=== PATIENT | female | born 1975 | race Asian ===

== ENCOUNTER 2016-06-12 11:46 | Day surgery (SDC) | payer OTHER ==
[~2016-06-12 11:46] MED LIST: ACET-1890 PO; ADV100INH IH; ALBU8.5H4 IH; AMIT10TA6 PO; ASCO1CAP4 PO; CALC-762 PO; CETI10CA PO; CHOL200025 PO; DOXE10CA PO; FOLI-52 PO; GLUC100016 PO; IMI25 PO; LIDO5CRE17 TP; PANT40TA3 PO; RANI150T11 PO; SPIR1TAB2 PO; THIO300C PO; TRIA10.8 NS; allertec PO
[2016-06-12] MEDS ORDERED: Lidocaine Topical 2% 30 mL Jelly ONE (12:08)
[2016-07-18] MEDS ORDERED: OXYC1TAB24 PO (15:21)
[2016-07-18] MEDS ORDERED: DULO20CA18 PO (15:21)
[2016-07-18] MEDS ORDERED: LORA10CA PO (15:21)
[2016-07-18] MEDS ORDERED: MECL-114 PO (15:21)
== END 2016-06-12 23:59 | disposition home or self-care (01) ==
LOC: END 11:46
PROVIDERS: ATTEND Internal Medicine Gastroenterology
DX: K21.9 Gastro-esophageal reflux disease without esophagitis (principal)

== ENCOUNTER 2016-07-09 20:36 | Emergency (ER) | payer OTHER ==
[~2016-07-09] VITALS: Ht 160 cm; Wt 73.2 kg
[2016-07-09 20:53] VITALS: BP 120/79; PULSE 81; RESP 16; O2SAT 100
--- NOTE | 2016-07-09 21:17 | DRSVH ---
PROCEDURE: X-RAY CHEST ONE VIEW, PORTABLE ([id number]) INDICATIONS: chest pain TECHNIQUE: One view of the chest was acquired. COMPARISON: [facility], CR, XR CHEST 1VW (PORTABLE), 01/12/2016, 14:17. FINDINGS: Surgical changes and devices: None. Lungs and pleura: No pleural effusions or pneumothorax. Lungs are clear. Mediastinum: Mediastinal contours appear normal. Heart size is normal. Bones and chest wall: No suspicious bony lesions. Overlying soft tissues appear unremarkable. IMPRESSION: No acute process. Dictated by: Haja Robins M.D. on 07/09/2016 at 21:15 Approved by: Haja Robins M.D. on 07/09/2016 at 21:15
--- NOTE | 2016-07-09 23:10 | ED.REPORT ---
HPI-Chest Pain 40 and Over Date of Service July 09, 2016 ED Provider: Vicente Cortes MD Patient is a 41 year old female who presents to the ED complaining of sharp, constant, sternal chest pain onset this morning upon waking. Her pain travels around both sides and radiates to her back. Associated symptoms include dizziness, constipation, headache, and nausea. She denies vomiting, diaphoresis , palpitations, diarrhea, or any other symptoms. She has had similar pain before that was less severe. She took Ibuprofen without relief. Nursing Notes Stated Complaint: CHEST PAIN Chief Complaint: Chest Pain Nursing Notes Reviewed: Yes Allergies: Uncoded Allergies: ROPINEROLE (Allergy, Intermediate, hallucinations, 03/04/14) environmental (Allergy, Unknown, runny nose/sneezing, 03/03/14) Scheduled ([allertec]) PO DAILY OTC Acetaminophen (Tylenol) 325 Mg Tablet 325 MG PO Q4-6H Alpha Lipoic Acid (Alpha Lipoic Acid) 300 Mg Capsule 300 MG PO DAILY Amitriptyline (Amitriptyline) 10 Mg Tablet 10 MG PO HS Ascorbic Acid/Collagen Hydr (Collagen Plus Vit C Capsule) 1 Each Capsule 1 EACH PO DAILY Calcium Carbonate/Vitamin D3 (Calcium 1,000 + D3 Caplet) 1 Each Tablet 1 EACH PO DAILY Cetirizine HCl (Zyrtec) 10 Mg Capsule 10 MG PO HS Cholecalciferol (Vitamin D3) (Vitamin D3) 2,000 Unit Tablet 2,000 UNIT PO DAILY Doxepin (Doxepin) 10 Mg Capsule 10 MG PO HS Fluticasone/Salmeterol (Advair 100-50 Diskus) 60 Puffs/Inh Disk 1 PUFFS IH BID Glucosamine Sulfate 2Kcl (Glucosamine) 1,000 Mg Tablet 1,500 MG PO DAILY Lidocaine Cream (Lidocaine Cream) 5 Gm Cream..g. 5 GM TP Q8 Multivitamin/Iron/Folic Acid (Centrum Complete Multivit Tab) 1 Each Tablet 1 EACH PO DAILY Pantoprazole DR (Pantoprazole DR) 40 Mg Tablet.dr 40 MG PO BID Ranitidine HCl (Ranitidine) 150 Mg Tablet 150 MG PO BID Spironolactone/HCTZ 25-25 mg (Spironolactone/HCTZ 25-25 mg) 1 Each Tablet 1 EACH PO DAILY Triamcinolone Acetonide (Nasacort) 10.8 Ml [place] 10.8 ML NS DAILY Scheduled PRN Albuterol HFA (Albuterol HFA) 8.5 Gm Hfa.aer.ad 2 PUFF IH Q4 PRN PRN For Wheezing Sumatriptan (Imitrex) 25 Mg Tablet 50 MG PO DIRECTED PRN PRN For Headache General Time Seen by MD: 23:08 Chief Complaint Chest pain Hx Obtained From: Patient Arrived By: Walk-in Sudden in Onset?: Yes Onset Occurred: 13 - 16 hours ago Symptom Duration: Since onset Similar Sx Previous: Yes Risk Factors )( CAD Risk Stratification No Diabetes mellitus, No Hyperlipidemia, No Hypertension, No Smoking Risk factors reviewed )( TAD Risk Stratification No Aortic valve disease, No Hypertension, No Risk factors reviewed )( PE Risk Stratification No Coagulation Disorder, No , No Previous DVT, No Previous PE Risk factors reviewed Past Medical History Past Medical History Gastritis Reports: Asthma, GERD Past Surgical History Reports: Tubal ligation Smoking History Never Smoker Social History Alcohol Use: "Social" Drug Use: Denies drug use Ambulatory Status Independent Review of Systems Cardiovascular: Reports: Chest pain, Denies: Palpitations GI: Reports: Diarrhea, Nausea, Denies: Constipation, Vomiting Musculoskeletal: Reports: Back pain Skin: Denies Diaphoresis Neurologic: Reports: Dizziness, Headache Complete sys rev & neg: except as marked. Physical Exam Initial Vital Signs Vital Signs (First) Date Time Temp Pulse Resp B/P Pulse Ox O2 Delivery O2 Flow Rate FiO2 07/09/16 20:53 36.0 81 16 120/79 100 Room Air Initial VS: Reviewed Head / Eyes: Atraumatic, Normocephalic Neck: Full range of motion Skin: Warm, Dry Neurologic: Alert, Oriented, Nonfocal Psychiatric: Mood/affect normal, Behavior normal, Normal thought content General/Constitutional: Awake, Alert, No acute distress, Well developed Respiratory / Chest: Breath sounds NL, Breath sounds = bilat, No respiratory distress Cardiovascular: Heart rate NL, Regular rhythm, Heart sounds NL, No gallop, No murmurs, No rubs Abdomen: Soft Tenderness/Guarding/Rebound: Positive: Fletcher's sign positive Interpretation & Diagnostics Lab Results Interpretation Result Diagram: 07/09/16 2319 07/09/16 2319 Test 07/09/16 23:19 White Blood Count 7.1th/mm3 (3.8-10.1) Red Blood Count 3.97mil/mm3 (3.90-5.20) Hemoglobin 11.7g/dL (12.0-15.6) Hematocrit 34.7% (35.0-46.0) Mean Corpuscular Volume 87.4fL (81-100) Mean Corpuscular Hemoglobin 29.5pg (27.0-35.0) Mean Corpuscular Hemoglobin Concent 33.7% (32.0-37.0) Red Cell Distribution Width 13.0% (12.3-15.4) Platelet Count 207bil/L (150-400) Neutrophils (%) (Auto) 44.2% (40-74) Lymphocytes (%) (Auto) 36.2% (14-46) Monocytes (%) (Auto) 9.3% (4-12) Eosinophils (%) (Auto) 9.6% (0-5) Basophils (%) (Auto) 0.6% (0-3) Sodium Level 139mEq/L (134-144) Potassium Level 3.7mEq/L (3.5-5.2) Chloride Level 104mEq/L (97-108) Carbon Dioxide Level 22mmol/L (18-29) Blood Urea Nitrogen 10mg/dL (6-24) Creatinine 0.60mg/dL (0.57-1.00) Estimat Glomerular Filtration Rate 156mL/min (>59) Glucose Level 87mg/dL (60-99) Calcium Level 8.9mg/dL (8.5-10.1) Magnesium Level 2.2mg/dL (1.6-2.6) Total Bilirubin 0.2mg/dL (0.0-1.2) Aspartate Amino Transf (AST/SGOT) 14U/L (0-50) Alanine Aminotransferase (ALT/SGPT) 11U/L (0-32) Alkaline Phosphatase 51U/L (25-150) Troponin T 0.010ug/L (0.0-0.011) Total Protein 7.3g/dL (6.4-8.4) Albumin 4.3g/dL (3.4-5.0) Lipase 26U/L (13-60) Hold Carter Top Tube Received (Received) ECG Interpretation ECG Interpretation: Sinus rate 74 no abnormalities Time: 21:37 Interpreted by: ED physician X-Ray Chest Interpretation Chest Xray Interpretation: IMPRESSION: No acute process. Dictated by: Haja Robins M.D. on 07/09/2016 at 21:15 Approved by: Haja Robins M.D. on 07/09/2016 at 21:15 View: Portable, 1 view Interpretation / Wet Read by: Interpret - Radiologist Re-Eval/Medical Decision Time of Eval: 00:08 Patient Status: Condition improved Re-Evaluation/Progress Note: Patient reports history of gastritis which is news to me. Her examination, however, is most consistent with biliary colic. In any case, she has an appointment with her doctor tomorrow and I will send her home with a prepack of Percocet because her laboratory data is normal now. Counseled Regarding: Diagnosis, Lab results Discharge & Departure Primary Impression: Acute abdominal pain Disposition: Home Patient Instructions: Acute Abdominal Pain (ED) Additional Instructions: No immediately dangerous cause for your abdominal pain is discovered. Laboratory data is all reassuring. I believe that your pain is probably caused by gallbladder inflammation. It is possible that the pain is from the gastritis you have been diagnosed with. I recommend 1 or 2 Percocet every 4 hours as needed for severe pain. I recommend follow-up with Dr. Dhaliwal later today for further evaluation as needed. Follow-up right away for pain that is not controllable with the medication, fever or jaundice. Referrals: Silvia Dhaliwal MD (PCP) Scribe Attestation Portions of this note were transcribed by Kalen Vilchis. I, Dr. Cortes personally performed the history, physical exam and medical decision-making; I reviewed and confirmed the accuracy of the information in the transcribed note. Signed by: Kalen Vilchis 07/09/16, 2350 copies to: Silvia Dhaliwal MD, Kirk H MD July 09, 2016 23:10 KALEN VILCHIS July 09, 2016 23:13
[2016-07-09 23:27] LABS: BASOPHILS % (AUTO) 0.6 % (0-3); EOSINOPHILS % (AUTO) 9.6 % (0-5); MONOCYTES % (AUTO) 9.3 % (4-12); Mean Corpuscular Hemoglobin 29.5 pg (27.0-35.0); Mean Corpuscular Volume 87.4 fL (81-100); NEUTROPHILS % (AUTO) 44.2 % (40-74); Platelet Count 207 bil/L (150-400)
[2016-07-09] MEDS ORDERED: Ondansetron 8 mg ODT Tablet PO ONE (23:30)
[2016-07-09] MEDS ORDERED: oxyCODONE-Acetamin 5-325 mg Tablet PO ONE (23:30)
[2016-07-10 00:02] LABS: Magnesium 2.2 mg/dL (1.6-2.6); TROPONIN T 0.01 ug/L (0.0-0.011)
[2016-07-10] MEDS ORDERED: _oxyCODONE/APAP 5-325 mg Tablet PO PRN (00:10)
[2016-07-10 00:48] VITALS: BP 122/64; RESP 16; O2SAT 96
[2016-07-18] MEDS ORDERED: OXYC1TAB24 PO (15:21)
[2016-07-18] MEDS ORDERED: MECL-114 PO (15:21)
[2016-07-18] MEDS ORDERED: LORA10CA PO (15:21)
[2016-07-18] MEDS ORDERED: DULO20CA18 PO (15:21)
== END 2016-07-10 00:50 | disposition home or self-care (01) ==
LOC: SED 20:36
DX: R10.9 Unspecified abdominal pain (principal); J45.909 Unspecified asthma, uncomplicated; K21.9 Gastro-esophageal reflux disease without esophagitis; Z88.8 Allergy status to other drugs, medicaments and biological substances

== ENCOUNTER 2016-07-19 08:42 | Day surgery (SDC) | payer OTHER ==
[~2016-07-19] VITALS: Ht 160 cm; Wt 71.7 kg
[~2016-07-19 08:42] MED LIST changes: +0.9% Sodium Chloride 1,000 ML IV SCH; -CETI10CA PO; -DOXE10CA PO; +DULO20CA18 PO; +LORA10CA PO; +MECL-114 PO; +OXYC1TAB24 PO; -SPIR1TAB2 PO; +Sodium Chloride LOK Flush 10 mL Syringe IV PRN; +fentaNYL-PF 50 mCg/mL 2 mL Inj IVPUSH PRN
[2016-07-19 09:35] VITALS: BP 124/76; PULSE 77; RESP 14; O2SAT 100
--- NOTE | 2016-07-19 10:14 | PCM.ENDEGD ---
EGD Date of Service: July 19, 2016 Physician Gunner Pascal MD Pre Procedure Diagnosis: Abdominal pain Post Procedure Dx & Findings: Gastritis Procedure Esophagogastroduodenoscopy PROCEDURE IN DETAIL: After proper sedation, Olympus video endoscope was inserted into patient's mouth and esophagus was successfully intubated. Scope introduced esophagus. Esophagus showed normal shiny whitish mucosa consistent with squamous cell component. Z line was intact at 40 cm from the incisors. Scope further advanced to the stomach. The stomach showed some atrophy of the rugae folds and the antrum shows some redness and mild edema. Biopsies are obtained using cold forceps of the antrum and the rugae folds. Cardia fundus body antrum pylorus were all visualized. Retroflexion was done. Stomach was easily inflated and deflatable using air. Scope further events to the distal duodenum. Duodenum revealed normal villous structures with normal appearing folds without any mass ulcer erosion. Impression Gastritis and gastric mucosal atrophic Recommendation Await biopsy results Patient still has abdominal discomfort with normal Z line. If biopsies are unremarkable for Helicobacter pylori and amitriptyline does not work, would consider using Carafate 10 mL 3 times a day and if this does not work, please order esophageal manometry and 24-hour pH study. Follow-up in the GI clinic with Dr. Kelley. Presedation Assessment Risks and Benefits Informed consent was obtained from the patient after all risks and benefits including but not limited to drug reaction, infection, pain, bleeding, perforation, as well as alternatives were discussed. Patient monitoring Continuous pulse oximetry, cardiac monitoring, blood pressure monitoring, IV access, and oxygen at 2L per nasal cannula. Periprocedural Fentanyl: Fentanyl 100mcg Incrementally Midazolam: Midazolam 5mg Incrementally Complications There were no periprocedural complications identified. Post Procedure Plan Post Procedure Recommendations 1. Restrict activities today. 2. Resume normal activities in the morning. 3. Resume medications. 4. GERD behavioral modification: - Avoid fatty, acidic, spicy, large meals - Do not lie down after meals - Do not eat or drink anything for at least 2 1/2 hours before going to bed at night - Discontinue tobacco and alcohol - Decrease or avoid caffeine - Avoid chocolate and mints - Decrease weight - Avoid aspirin and non steroidal anti-inflammatory agents (NSAID) such as Aleve, Advil, Mobic, Naproxen, Ibuprofen, etc 5. Add proton pump inhibitor. Take 30 minutes before 1st meal of the day. 6. Patient informed of normal post procedure side effects as bloating, drowsiness, blood streaking in the stool 7. If gastric biopsy reveal H.pylori, continue with appropriate treatment 8. If small bowel biopsy reveals celiac, continue with appropriate treatment 9. Please don't hesitate to call me with any questions Gunner Pascal MD July 19, 2016 10:14
[2016-07-19 10:15] VITALS: BP 114/61; PULSE 74; RESP 14; O2SAT 100
[2016-07-19 10:35] VITALS: BP 120/69; PULSE 75; RESP 16; O2SAT 100
[2016-07-19 10:40] VITALS: BP 137/79; PULSE 80; RESP 16; O2SAT 100
--- NOTE | 2016-07-20 10:33 | PATH ---
SURGICAL PATHOLOGY Attending Physician:Gunner Pascal M.D. CASE STATUS: Signed Out PATIENT NAME: NEFTALI ENRIQUEZ PID: [id number] : 1975 DATE COLLECTED:07/19/2016 16:07 SPECIMEN: Gastric, Biopsy CLINICAL HISTORY: GERD 1.GASTRIC BX FINAL DIAGNOSIS: 1.GASTRIC BIOPSY: MILD CHRONIC GASTRITIS INVOLVING ANTRAL AND FUNDIC MUCOSA WITH FOCAL ACUTE INFLAMMATORY CHANGES IN ANTRAL MUCOSA. Immunohistochemistry for Helicobacter pending, to be reported by addendum. Negative for intestinal metaplasia. Negative for dysplasia and malignancy. ICD10 K29.70 GROSS DESCRIPTION: The specimen is received in one formalin filled container labeled with the patient's name, sublabeled "gastric" and consists of 3 portions of tissue which aggregate to 0.4 x 0.4 x 0.3 CM. The specimen is entirely submitted in one cassette. 07/19/2016 DAC MICRO DESCRIPTION: See diagnosis. ICD-9 CODES: CPT CODES: 1: 78584, 94216 PROCEDURE/ADDENDA: Immunohistochemistry SPI Interpretation {Not Entered} Results-Comments An immunostain for Helicobacter organisms is negative. The diagnosis is unchanged. This test was developed and its performance characteristics determined by [facility]. It has not been cleared or approved by the U. [place]. Food and Drug Administration. The FDA has determined that such clearance or approval is not necessary. This test is used for clinical purposes. It should not be regarded as investigational or for research. Electronically Signed Out Mauricio Dong MD Electronically Signed Out Eddie Lundberg MD [facility] [address], [place] [address] Technical component performed at [facility], [address], [place], [address]
== END 2016-07-19 23:59 | disposition home or self-care (01) ==
LOC: END 08:42
PROVIDERS: ATTEND Internal Medicine
DX: K29.50 Unspecified chronic gastritis without bleeding (principal); K21.0 Gastro-esophageal reflux disease with esophagitis; I10 Essential (primary) hypertension; K21.9 Gastro-esophageal reflux disease without esophagitis; M54.2 Cervicalgia; R73.01 Impaired fasting glucose; J45.909 Unspecified asthma, uncomplicated; M79.7 Fibromyalgia
CPT/HCPCS: 43239; 88305; 88342; G0500; J7030

== ENCOUNTER → 2016-10-15 | Day surgery (SDC) | payer OTHER ==
[~2016-10-15] VITALS: Ht 160 cm; Wt 68.5 kg
[~2016-10-15] MED LIST changes: +ACET-171 PO; +ALBU8.5H2 INHALATION; -DULO20CA18 PO; +POLY17PO6 PO; +RANI150C4 PO; +SUCR1ORA2 PO
[2016-10-15 09:56] VITALS: BP 133/81; PULSE 84; RESP 12; O2SAT 100
[2016-10-15 10:29] VITALS: BP 111/63; PULSE 80; RESP 16; O2SAT 100
--- NOTE | 2016-10-15 10:36 | PCM.ENDCOL ---
Colonoscopy Date of Service: Oct 15, 2016 Physician Gunner Pascal MD Pre Procedure Diagnosis: Lower abdominal pain Post Procedure Dx & Findings: Polyp hemorrhoids Procedure Colonoscopy PROCEDURE IN DETAIL: Prep adequate Withdrawal time 9 minutes After unremarkable rectal examination the Olympus video colonoscope was inserted patient's anal canal and was advanced to cecum. Landmarks were identified including the ileocecal valve and appendiceal orifice. Scope further advanced to terminal ileum. Visualized terminal ileum showed normal villous structures without any ulcer mass or erosions. Advanced 10 cm. Scope was withdrawn systematically. Visualized colonic mucosa showed healthy shiny mucosa with normal healthy-appearing vasculature. In the descending colon, there was a 1 mm polyp which was removed completely using cold forceps. In the rectum retroflexion was done which showed hemorrhoids. Anal canal was inspected carefully on the way out and hemorrhoids noted. Impression Polyp 1. Complete removal Normal TI Hemorrhoids Recommendation Repeat colonoscopy in 5 years Presedation Assessment Risks and Benefits Informed consent was obtained from the patient after all risks and benefits including but not limited to drug reaction, infection, pain, bleeding, perforation, as well as alternatives were discussed. Patient monitoring Continuous pulse oximetry, cardiac monitoring, blood pressure monitoring, IV access, and oxygen at 2L per nasal cannula. Periprocedural Fentanyl: Fentanyl 100mcg Incrementally Midazolam: Midazolam 6mg Incrementally Complications There were no periprocedural complications identified. Post Procedure Plan Post Procedure Recommendations 1. Restrict activities today. 2. Resume normal activities in the morning. 3. Resume medications. 4. Patient informed of normal post procedure side effects as bloating, drowsiness, blood streaking in the stool. 5. average risk CRCS. If colon polyps come back as: -Hyperplastic- can repeat colonoscopy in 10 years -Tubular adenoma- repeat colonoscopy in 5 years -Tubulovillous/villous adenoma- repeat colonoscopy in 3 years -If any dysplasia- return to clinic as soon as possible 6. Please don't hesitate to call me with any questions. Gunner Pascal MD Oct 15, 2016 10:36
[2016-10-15 10:42] VITALS: BP 121/66; PULSE 90; RESP 14; O2SAT 100
--- NOTE | 2016-10-17 12:08 | PATH ---
SURGICAL PATHOLOGY Attending Physician:Gunner Pascal M.D. CASE STATUS: Signed Out PATIENT NAME: NEFTALI ENRIQUEZ PID: [id number] : 1975 DATE COLLECTED:10/15/2016 16:42 SPECIMEN: Colon, Polyp CLINICAL HISTORY: 1). DESCENDING POLYP FINAL DIAGNOSIS: 1.DESCENDING POLYP, BIOPSY: TUBULAR ADENOMA. ICD10 D12.6 GROSS DESCRIPTION: The specimen is received in one formalin filled container labeled with the patient's name, sublabeled "descending polyp" and consists of a 0.3 x 0.2 x 0.2 CM portion of tissue which is entirely submitted in one cassette. 10/15/2016DC MICRO DESCRIPTION: See diagnosis. ICD-9 CODES: CPT CODES: 1: 22727 Electronically Signed Out Rafael Savage MD, PhD [facility] [address] [place] [address], [place] [address] Technical component performed at [facility], [address] [place] [address] Ave[address], [place], [address]
== END | disposition home or self-care (01) ==
LOC: END 00:25
PROVIDERS: ATTEND Internal Medicine
DX: D12.4 Benign neoplasm of descending colon (principal); K64.9 Unspecified hemorrhoids; R10.9 Unspecified abdominal pain; K59.00 Constipation, unspecified; I10 Essential (primary) hypertension; K21.9 Gastro-esophageal reflux disease without esophagitis; M54.2 Cervicalgia; G60.9 Hereditary and idiopathic neuropathy, unspecified; J45.909 Unspecified asthma, uncomplicated; M79.7 Fibromyalgia; Z79.891 Long term (current) use of opiate analgesic
CPT/HCPCS: 45380; 88305; G0500; J2250; J3010; J7030